=== PATIENT | female | born 1930 | race African-American/Black ===

== ENCOUNTER 2016-10-16 11:04 | Observation (INO) | payer OTHER ==
[2016-10-16] VITALS (7 sets, daily range): BP systolic 167–187; BP diastolic 70–82; PULSE 44–67; RESP 17–19; TEMP 97.7–98.9; O2SAT 96–100
[~2016-10-16] VITALS: Ht 167.6 cm; Wt 70.0 kg
[~2016-10-16 11:04] MED LIST: AMLO5 PO; HYDR-2768 PO; LISI-366 PO; OMEG306C PO
[2016-10-16] MEDS ORDERED: SODIUM CHLOR 0.9% 1000 ML INJ 1,000 ML IV SCH (11:35)
--- NOTE | 2016-10-16 11:39 | RADRPT ---
EXAM DATE/TIME: 10/16/2016 11:18 [facility] COMPARISON: CT BRAIN W/O CONTRAST, July 30, 2014, 11:16. INDICATIONS : Expressive aphasia and numbness; cephalgia. RADIATION DOSE: 56.35 CTDIvol (mGy) MEDICAL HISTORY : Hypertension. SURGICAL HISTORY : Hysterectomy. ENCOUNTER: Initial ACUITY: 1 day PAIN SCALE: 5/10 LOCATION: cranial TECHNIQUE: Multiple contiguous axial images were obtained of the head. Using automated exposure control and adj ustment of the mA and/or kV according to patient size, radiation dose was kept as low as reasonably a chievable to obtain optimal diagnostic quality images. DICOM format image data is available electro nically for review and comparison. FINDINGS: CEREBRUM: The ventricles are normal for age. No evidence of midline shift, mass lesion, hemorrhage or acute in farction. No extra-axial fluid collections are seen. POSTERIOR FOSSA: The cerebellum and brainstem are intact. The 4th ventricle is midline. The cerebellopontine angle i s unremarkable. EXTRACRANIAL: The visualized portion of the orbits is intact. SKULL: The calvaria is intact. No evidence of skull fracture. CONCLUSION: Normal examination. Olivia Riley MD on October 16, 2016 at 11:36 Board Certified Radiologist. This report was verified electronically.
--- NOTE | 2016-10-16 11:45 | PD ---
HPI Chief Complaint: Neuro Symptoms/ Deficits Time Seen by Provider: 11:17 Travel History International Travel<30 days: No Contact w/Intl Traveler<30days: No Traveled to known affect area: No History of Present Illness HPI 86-year-old female that presents to the ED for evaluation of possible TIA. Per patient and ambulance report she was having diarrhea earlier today. Per patient he fell she had an upset stomach. She felt weak and she went to sat down after going to the bathroom. At this time she developed trouble speaking and some numbness and tingling to her fingers and legs. Per patient this is when they called the ambulance. By the time ambulance showed up symptoms have subsided and patient was hard to normal. She denies any chest pain but states having a slight headache. She states that she still feels the tingling sensation on her fingers but nowhere else. She denies any chest pain. No palpitations. No fall or injury. Takes no blood thinners. History of borderline diabetic and hypertension. Denies having anything like this before. Patient does tell me that she had trouble speaking stating that she couldn't really find the words. Per ambulance she had expressive aphasia per family. Symptoms lasted about an hour and no symptoms have subsided. She has no history of CVA in the past. No history of neurological deficits in the past. She has no allergies to medication. She states that she just feels "sick". She can't really tell me if she has any pain. PFSH Past Medical History Hypertension: Yes ?: Not Past Surgical History Hysterectomy: Yes Social History Alcohol Use: No Tobacco Use: No Substance Use: No Allergies-Medications (Allergen,Severity, Reaction): Coded Allergies: No Known Allergies (Unverified , 10/16/16) Reported Meds & Prescriptions Reported Meds & Active Scripts Active Reported Hydrochlorothiazide 25 Mg Tab 25 Mg PO DAILY Simvastatin 40 Mg Tab 40 Mg PO HS Amlodipine (Amlodipine Besylate) 5 Mg Tab 5 Mg PO DAILY Review of Systems Except as stated in HPI: all other systems reviewed are Neg Physical Exam Narrative GENERAL: SKIN: Warm and dry. HEAD: Atraumatic. Normocephalic. EYES: Pupils equal and round 2 mm reactive to light and accommodation. No scleral icterus. No injection or drainage. ENT: No nasal bleeding or discharge. Mucous membranes pink and moist. Tongue is midline. No uvula deviation. No cranial nerve deficits noted. NECK: Trachea midline. No JVD. CARDIOVASCULAR: Regular rate and rhythm. No murmurs, S3, S4. RESPIRATORY: No accessory muscle use. Clear to auscultation. Breath sounds equal bilaterally. GASTROINTESTINAL: Abdomen soft, non-tender, nondistended. Hepatic and splenic margins not palpable. MUSCULOSKELETAL: Extremities without clubbing, cyanosis, or edema. No obvious deformities. Full range of motion of the upper and lower extremities bilaterally. Sensation intact bilaterally. Romberg test negative bilaterally. Pronator test negative bilaterally. 2+ pulses bilaterally. 5 out of 5 strength in the upper and lower extremities bilaterally. NEUROLOGICAL: Awake and alert and oriented 4. No obvious cranial nerve deficits. Motor grossly within normal limits. Five out of 5 muscle strength in the arms and legs. Normal speech. PSYCHIATRIC: Appropriate mood and affect; insight and judgment normal. Data Data Last Documented VS Vital Signs Date Time Temp Pulse Resp B/P (MAP) Pulse Ox O2 Delivery O2 Flow Rate FiO2 10/16/16 11:10 97.7 44 18 167/73 (104) 100 Orders Orders Electrocardiogram (10/16/16 11:15) Complete Blood Count With Diff (10/16/16 11:15) Basic Metabolic Panel (Bmp) (10/16/16 11:15) Ckmb (Isoenzyme) Profile (10/16/16 11:15) Troponin I (10/16/16 11:15) Prothrombin Time / Inr (Pt) (10/16/16 11:15) Act Partial Throm Time (Ptt) (10/16/16 11:15) Urinalysis - C+S If Indicated (10/16/16 11:15) Magnesium (Mg) (10/16/16 11:15) Thyroid Stimulating Hormone (10/16/16 11:15) Chest, Single Ap (10/16/16 11:15) Ct Brain W/O Iv Contrast(Rout) (10/16/16 11:15) Iv Access Insert/Monitor (10/16/16 11:15) Hepatic Functional Panel (10/16/16 11:35) Lipase (10/16/16 11:35) Sodium Chlor 0.9% 1000 Ml Inj (Ns 1000 M (10/16/16 11:35) CKMB (10/16/16 11:15) CKMB% (10/16/16 11:15) Admit Order (Ed Use Only) (10/16/16 13:10) Labs Laboratory Tests Test 10/16/16 11:15 10/16/16 11:45 White Blood Count 6.1 TH/MM3 Red Blood Count 4.09 MIL/MM3 Hemoglobin 11.4 GM/DL Hematocrit 34.9 % Mean Corpuscular Volume 85.4 FL Mean Corpuscular Hemoglobin 27.8 PG Mean Corpuscular Hemoglobin Concent 32.5 % Red Cell Distribution Width 13.3 % Platelet Count 322 TH/MM3 Mean Platelet Volume 6.9 FL Neutrophils (%) (Auto) 49.4 % Lymphocytes (%) (Auto) 43.9 % Monocytes (%) (Auto) 4.9 % Eosinophils (%) (Auto) 1.4 % Basophils (%) (Auto) 0.4 % Neutrophils # (Auto) 3.0 TH/MM3 Lymphocytes # (Auto) 2.7 TH/MM3 Monocytes # (Auto) 0.3 TH/MM3 Eosinophils # (Auto) 0.1 TH/MM3 Basophils # (Auto) 0.0 TH/MM3 CBC Comment DIFF FINAL Differential Comment Prothrombin Time 10.7 SEC Prothromb Time International Ratio 1.0 RATIO Activated Partial Thromboplast Time 27.3 SEC Blood Urea Nitrogen 7 MG/DL Creatinine 0.92 MG/DL Random Glucose 102 MG/DL Calcium Level 9.4 MG/DL Magnesium Level 1.8 MG/DL Sodium Level 142 MEQ/L Potassium Level 3.6 MEQ/L Chloride Level 108 MEQ/L Carbon Dioxide Level 24.3 MEQ/L Anion Gap 10 MEQ/L Estimat Glomerular Filtration Rate 70 ML/MIN Total Bilirubin 0.3 MG/DL Direct Bilirubin 0.1 MG/DL Indirect Bilirubin 0.2 MG/DL Aspartate Amino Transf (AST/SGOT) 14 U/L Alanine Aminotransferase (ALT/SGPT) 18 U/L Alkaline Phosphatase 68 U/L Total Creatine Kinase 110 U/L Creatine Kinase MB 1.4 NG/ML Troponin I LESS THAN 0.02 NG/ML Total Protein 7.2 GM/DL Albumin 3.4 GM/DL Lipase 105 U/L Thyroid Stimulating Hormone 3rd Gen 1.500 uIU/ML Urine Color LIGHT-YELLOW Urine Turbidity CLEAR Urine pH 8.0 Urine Specific [place] 1.007 Urine Protein NEG mg/dL Urine Glucose (UA) NEG mg/dL Urine Ketones NEG mg/dL Urine Occult Blood NEG Urine Nitrite NEG Urine Bilirubin NEG Urine Urobilinogen LESS THAN 2.0 MG/DL Urine Leukocyte Esterase NEG Urine RBC 1 /hpf Urine Squamous Epithelial Cells <1 /hpf Urine Mucus FEW /lpf Microscopic Urinalysis Comment CULT NOT INDICATED MDM Medical Decision Making Medical Screen Exam Complete: Yes Emergency Medical Condition: Yes Medical Record Reviewed: Yes Interpretation(s) Last Impressions Head CT 10/16/16 1115 Signed Impressions: Service Date/Time: Sunday, October 16, 2016 11:18 - CONCLUSION: Normal examination. Olivia Riley MD Chest X-Ray 10/16/16 1115 Signed Impressions: Service Date/Time: Sunday, October 16, 2016 11:50 - CONCLUSION: No acute disease. No significant change has occurred. Zenon Dougherty MD CBC & BMP Diagram 10/16/16 11:15 Calcium Level 9.4, Magnesium Level 1.8 troponin and CKMB negative LFTS WNL Lipase WNL EKG shows sinus bradycardia but no sign of ischemia read by me and attending. UA negative Differential Diagnosis TIA versus CVA versus dehydration versus diarrhea versus generalized weakness versus ACS Narrative Course 86-year-old female that presents to the ED for evaluation of possible TIA. Patient was properly examined and was found to have signs and symptoms of unclear etiology. Labs and imaging were ordered. Labs and imaging were essentially unremarkable other than for bradycardia on EKG. At this time case was discussed with my attending Dr. Judd who evaluated the patient and recommends admission for TIA workup. All her symptoms seem to have resolved except she still has something to her fingers. Case was discussed with Dr. Phillips who is in agreement with admission for FOR TIA workup. Family and patient agree with plan. Diagnosis Primary Impression: TIA (transient ischemic attack) Qualified Codes: G45.9 - Transient cerebral ischemic attack, unspecified Additional Impressions: Expressive aphasia Bradycardia Hypertension Qualified Codes: I10 - Essential (primary) hypertension Admitting Information Admitting Physician Requests: Observation Roni Donovan Oct 16, 2016 11:45
[2016-10-16] MEDS ORDERED: SIMV40TA PO (11:53)
[2016-10-16] MEDS ORDERED: HYDR25TA5 PO (11:53)
[2016-10-16] MEDS ORDERED: AMLO5TAB2 PO (11:53)
[2016-10-16 12:01] LABS: BASOPHIL % 0.4 % (0.0-2.0); EOSINOPHIL # 0.1 TH/MM3 (0-0.4); EOSINOPHIL % 1.4 % (0.0-4.0); HEMATOCRIT 34.9 % (35.0-46.0); HEMO FLAGS DIFF FINAL; LYMPH % 43.9 % (9.0-44.0); LYMPHOCYTE # 2.7 TH/MM3 (1.0-4.8); MEAN CELL VOLUME 85.4 FL (80.0-100.0); MEAN CORPUSCULAR HEMOGLOBIN 27.8 PG (27.0-34.0); MEAN CORPUSCULAR HGB CONC 32.5 % (32.0-36.0); MONO % 4.9 % (0.0-8.0); NEUT % 49.4 % (16.0-70.0); PLATELET COUNT 322 TH/MM3 (150-450); RED BLOOD COUNT 4.09 MIL/MM3 (4.00-5.30); RED CELL DISTRIBUTION WIDTH 13.3 % (11.6-17.2); WHITE BLOOD COUNT 6.1 TH/MM3 (4.0-11.0)
[2016-10-16 12:02] LABS: BLOOD, URINE NEG (NEG); COMMENT (UR) CULT NOT INDICATED; CULTURE IF INDICATED CULT NOT INDICATED; GLUCOSE,URINE NEG (NEG); KETONE, URINE NEG (NEG); MUCUS URINE FEW /lpf (OCC); NITRITE,URINE NEG (NEG); SQUAMOUS EPITHELIAL CELL URINE <1 /hpf (0-5); URINE COLOR LIGHT-YELLOW (YELLW/STRAW)
--- NOTE | 2016-10-16 12:05 | RADRPT ---
EXAM DATE/TIME: 10/16/2016 11:50 [facility] COMPARISON: CHEST SINGLE AP, July 30, 2014, 10:41. INDICATIONS : Syncope MEDICAL HISTORY : Hypertension. SURGICAL HISTORY : Hysterectomy. ENCOUNTER: Initial ACUITY: 2 days PAIN SCORE: 0/10 LOCATION: chest FINDINGS: A single view of the chest demonstrates the lungs to be symmetrically aerated without evidence of mas s, infiltrate or effusion. The cardiomediastinal contours are unremarkable. Osseous structures are intact. CONCLUSION: No acute disease. No significant change has occurred. Zenon Dougherty MD on October 16, 2016 at 12:03 Board Certified Radiologist. This report was verified electronically.
[2016-10-16 12:09] LABS: APTT (PATIENT) 27.3 SEC (24.3-30.1); PROTHROMBIN TIME - PATIENT 10.7 SEC (9.8-11.6)
[2016-10-16 12:21] LABS: ANION GAP 10 MEQ/L (5-15); BICARBONATE 24.3 MEQ/L (21.0-32.0); CHLORIDE 108 MEQ/L (98-107); GLOMERULAR FILTRATION RATE 70 ML/MIN (>89); MAGNESIUM 1.8 MG/DL (1.5-2.5); POTASSIUM 3.6 MEQ/L (3.5-5.1); SODIUM (NA) 142 MEQ/L (136-145)
[2016-10-16 12:30] LABS: INDIRECT BILIRUBIN 0.2 MG/DL (0.0-0.8); TOTAL BILIRUBIN ADULT 0.3 MG/DL (0.2-1.0)
[2016-10-16 12:32] LABS: BLOOD UREA NITROGEN 7 MG/DL (7-18); CREATINE KINASE 110 U/L (26-192)
[2016-10-16 12:44] LABS: CKMB 1.4 NG/ML (0.5-3.6)
--- NOTE | 2016-10-16 12:51 | PD ---
Data Data Last Documented VS Vital Signs Date Time Temp Pulse Resp B/P (MAP) Pulse Ox O2 Delivery O2 Flow Rate FiO2 10/16/16 11:10 97.7 44 18 167/73 (104) 100 Orders Orders Electrocardiogram (10/16/16 11:15) Complete Blood Count With Diff (10/16/16 11:15) Basic Metabolic Panel (Bmp) (10/16/16 11:15) Ckmb (Isoenzyme) Profile (10/16/16 11:15) Troponin I (10/16/16 11:15) Prothrombin Time / Inr (Pt) (10/16/16 11:15) Act Partial Throm Time (Ptt) (10/16/16 11:15) Urinalysis - C+S If Indicated (10/16/16 11:15) Magnesium (Mg) (10/16/16 11:15) Thyroid Stimulating Hormone (10/16/16 11:15) Chest, Single Ap (10/16/16 11:15) Ct Brain W/O Iv Contrast(Rout) (10/16/16 11:15) Iv Access Insert/Monitor (10/16/16 11:15) Hepatic Functional Panel (10/16/16 11:35) Lipase (10/16/16 11:35) Sodium Chlor 0.9% 1000 Ml Inj (Ns 1000 M (10/16/16 11:35) CKMB (10/16/16 11:15) CKMB% (10/16/16 11:15) Labs Laboratory Tests Test 10/16/16 11:15 10/16/16 11:45 White Blood Count 6.1 TH/MM3 Red Blood Count 4.09 MIL/MM3 Hemoglobin 11.4 GM/DL Hematocrit 34.9 % Mean Corpuscular Volume 85.4 FL Mean Corpuscular Hemoglobin 27.8 PG Mean Corpuscular Hemoglobin Concent 32.5 % Red Cell Distribution Width 13.3 % Platelet Count 322 TH/MM3 Mean Platelet Volume 6.9 FL Neutrophils (%) (Auto) 49.4 % Lymphocytes (%) (Auto) 43.9 % Monocytes (%) (Auto) 4.9 % Eosinophils (%) (Auto) 1.4 % Basophils (%) (Auto) 0.4 % Neutrophils # (Auto) 3.0 TH/MM3 Lymphocytes # (Auto) 2.7 TH/MM3 Monocytes # (Auto) 0.3 TH/MM3 Eosinophils # (Auto) 0.1 TH/MM3 Basophils # (Auto) 0.0 TH/MM3 CBC Comment DIFF FINAL Differential Comment Prothrombin Time 10.7 SEC Prothromb Time International Ratio 1.0 RATIO Activated Partial Thromboplast Time 27.3 SEC Blood Urea Nitrogen 7 MG/DL Creatinine 0.92 MG/DL Random Glucose 102 MG/DL Calcium Level 9.4 MG/DL Magnesium Level 1.8 MG/DL Sodium Level 142 MEQ/L Potassium Level 3.6 MEQ/L Chloride Level 108 MEQ/L Carbon Dioxide Level 24.3 MEQ/L Anion Gap 10 MEQ/L Estimat Glomerular Filtration Rate 70 ML/MIN Total Bilirubin 0.3 MG/DL Direct Bilirubin 0.1 MG/DL Indirect Bilirubin 0.2 MG/DL Aspartate Amino Transf (AST/SGOT) 14 U/L Alanine Aminotransferase (ALT/SGPT) 18 U/L Alkaline Phosphatase 68 U/L Total Creatine Kinase 110 U/L Troponin I LESS THAN 0.02 NG/ML Total Protein 7.2 GM/DL Albumin 3.4 GM/DL Lipase 105 U/L Thyroid Stimulating Hormone 3rd Gen 1.500 uIU/ML Urine Color LIGHT-YELLOW Urine Turbidity CLEAR Urine pH 8.0 Urine Specific [place] 1.007 Urine Protein NEG mg/dL Urine Glucose (UA) NEG mg/dL Urine Ketones NEG mg/dL Urine Occult Blood NEG Urine Nitrite NEG Urine Bilirubin NEG Urine Urobilinogen LESS THAN 2.0 MG/DL Urine Leukocyte Esterase NEG Urine RBC 1 /hpf Urine Squamous Epithelial Cells <1 /hpf Urine Mucus FEW /lpf Microscopic Urinalysis Comment CULT NOT INDICATED MDM Supervised Visit with HAYDE: Yes Narrative Course The history, exam, and medical decision-making in the associated midlevel provider note were completed with my assistance. I reviewed and agree with the findings presented. I attest that I had a [id number] encounter with the patient on the same day, and personally performed and documented my assessment and findings in the medical record. *My assessment and Findings: This is an 86 year old female who presents to ED having had an episode several minutes with her family earlier that she had difficulty answering questions and getting her words out. She also says she had numbness and tingling in her left lower extremity and both hands. Her symptoms have completely resolved in the ED and she has a normal neurologic exam. Labs and CT are reassuring. Pt. is high risk. She will be admitted for TIA evaluation. Maureen Judd MD Oct 16, 2016 12:51
[2016-10-16] MEDS ORDERED: SODIUM CHLORIDE 0.9% FLUSH 10 ML FLUSH IV FLUSH PRN (13:15)
--- NOTE | 2016-10-16 15:38 | RADRPT ---
EXAM DATE/TIME: 10/16/2016 14:14 [facility] COMPARISON: No previous studies available for comparison. INDICATIONS : Transischemic attack. MEDICAL HISTORY : Hypertension. SURGICAL HISTORY : Hysterectomy. ENCOUNTER: Initial ACUITY: 1 day PAIN SCORE: 0/10 LOCATION: Bilateral neck PEAK SYSTOLIC VELOCITIES (cm/sec): ICA/CCA RATIO: Right: 1.2 Left: 1.0 ICA: Right: 118 Left: 112 CCA: Right: 97 Left: 116 ECA: Right: 154 Left: 119 VERTEBRAL: Right: 69 antegrade Left: 20 antegrade Elevated flow velocities and ICA/CCA ratios have been found to correlate with increased degrees of vessel stenosis, calculated as percentage of diameter relative to a normal segment of distal ICA/CCA FINDINGS: RIGHT CAROTID: Vessels are tortuous, especially proximal common carotid artery. There is moderate plaque in the bulb and proximal internal carotid artery. 50% or less narrowing by cross-section. LEFT CAROTID: Tortuous, especially proximal common carotid artery. Moderate plaque of the bulb and proximal interna l carotid artery. By cross-section, suggestion for a greater than 70% narrowing but not confirmed by Doppler. VERTEBRAL ARTERIES: Antegrade flow is seen in both vertebral arteries. MISCELLANEOUS: None. CONCLUSION: Bilateral carotid tortuosity and moderate plaque of the bifurcations. No Doppler evidence of hemodyna mically significant narrowing. Dar Lomeli MD on October 16, 2016 at 15:34 Board Certified Radiologist. This report was verified electronically.
--- NOTE | 2016-10-16 16:06 | RADRPT ---
EXAM DATE/TIME: 10/16/2016 14:52 [facility] COMPARISON: CT BRAIN W/O CONTRAST, October 16, 2016, 11:18. INDICATIONS : Bilat lower extremity numbness MEDICAL HISTORY : Hypertension. Hypercholesterolemia. SURGICAL HISTORY : Hysterectomy. ENCOUNTER: Initial ACUITY: 1 day PAIN SCORE: 0/10 LOCATION: cranial TECHNIQUE: Multiplanar, multisequence MRI of the brain was performed without contrast. FINDINGS: CEREBRUM: The ventricles are normal for age. No evidence of midline shift, mass lesion, hemorrhage or acute in farction. No extraaxial fluid collections are seen. The pituitary gland and suprasellar cistern are normal in configuration. WHITE MATTER: No significant signal abnormalities are seen in the white matter. POSTERIOR FOSSA: The cerebellum and brainstem are intact. The 4th ventricle is midline. The cerebellopontine angle is unremarkable. The cerebellar tonsils are normal in position. DIFFUSION IMAGING: No focal areas of restricted diffusion are seen. No evidence of acute infarction. EXTRACRANIAL: The visualized portions of the orbits and paranasal sinuses are unremarkable. CONCLUSION: Normal noncontrast brain MRI. Dar Lomeli MD on October 16, 2016 at 16:04 Board Certified Radiologist. This report was verified electronically.
[2016-10-16] MEDS ORDERED: LISI40TA PO (16:08)
--- NOTE | 2016-10-16 16:38 | HHI.HP ---
[facility] Service [facility] Primary Care Physician Zenon Calderon MD Admission Diagnosis TIA, resolved expressive aphasia Diagnoses: Chief Complaint: Dizziness Travel History International Travel<30 Days: No Contact w/Intl Traveler <30 Da: No Traveled to Known Affected Are: No History of Present Illness Patient is a very pleasant 86 year-old female left-handed, with known history of hypertension still very feisty and independent with her ADLs who woke up this morning feeling weak, " sick, and like my whole body sick". On further questioning patient states has been feeling like this for one week now and described it as "feels foggy". She did states that she had diarrhea for the past 3 days watery stools nonbloody. Denies any fever or chills. She denies passing out or having any syncopal episodes. Persistence prompted her to call her son who lives with her and was brought in by [facility]. On initial exam was noted by ER to have some mild expressive aphasia. Currently on exam patient is very spontaneous in speech. Denies any weakness. Patient admitted for further evaluation. Review of Systems Constitutional: DENIES: Fever, Weight loss, Chills, Change in appetite Eyes: DENIES: Blurred vision, Double Vision Ears, nose, mouth, throat: DENIES: Tinnitus, Ear Pain, Epistaxis, Odynophagia Respiratory: DENIES: Cough, Hemoptysis, Sputum production, Shortness of breath Cardiovascular: DENIES: Chest pain, Palpitations, Dyspnea on Exertion, Lower Extremity Edema, Orthopnea Gastrointestinal: DENIES: Black stools, Bloody stools, Difficulty Swallowing, Anorexia Genitourinary: DENIES: Urgency, Hematuria, Vaginal discharge Musculoskeletal: DENIES: Joint pain, Stiffness Integumentary: DENIES: Pruritus Hematologic/lymphatic: DENIES: Bruising Immunologic/allergic: DENIES: Urticaria Neurologic: DENIES: Headache, Speech Problems, Tremor Psychiatric: DENIES: Suicidal Ideation, Homicidal Ideation Past Family Social History Past Medical History Hypertension hyperlipidemia Past Surgical History Hysterectomy secondary to fibroid tumor in 1971 Reported Medications Hydrochlorothiazide 25 mg daily Simvastatin 40 mg at bedtime Amlodipine 5 mg daily Lisinopril 40 mg daily Allergies: Coded Allergies: No Known Allergies (Unverified , 10/16/16) Family History Noncontributory Social History Nonsmoker drink occasional beer -none for 40 years No recreational drug use Physical Exam Vital Signs Vital Signs Date Time Temp Pulse Resp B/P (MAP) Pulse Ox O2 Delivery O2 Flow Rate FiO2 10/16/16 15:49 67 19 187/81 (116) 97 Room Air 10/16/16 13:25 97 21 10/16/16 11:10 97.7 44 18 167/73 (104) 100 Physical Exam GENERAL: This is a well-nourished, well-developed patient, in no apparent distress. SKIN: No rashes, ecchymoses or lesions. Cool and dry. HEAD: Atraumatic. Normocephalic. No temporal or scalp tenderness. EYES: Pupils equal round and reactive. Extraocular motions intact. No scleral icterus. No injection or drainage. ENT: Nose without bleeding, purulent drainage or septal hematoma. Throat without erythema, tonsillar hypertrophy or exudate. Uvula midline. Airway patent. NECK: Trachea midline. No JVD or lymphadenopathy. Supple, nontender, no meningeal signs. No bruit CARDIOVASCULAR: Regular rate and rhythm without murmurs, gallops, or rubs. RESPIRATORY: Clear to auscultation. Breath sounds equal bilaterally. No wheezes , rales, or rhonchi. GASTROINTESTINAL: Abdomen soft, non-tender, nondistended.No guarding. MUSCULOSKELETAL: Extremities without clubbing, cyanosis, or edema. No joint tenderness, effusion, or edema noted. No calf tenderness. Negative Homans sign bilaterally. NEUROLOGICAL: Awake and alert. Oriented 3 Speech clear and spontaneous Cranial nerves II through XII intact. Motor and sensory grossly within normal limits. Five out of 5 muscle strength in all muscle groups. Normal speech. Laboratory Laboratory Tests Test 10/16/16 11:15 10/16/16 11:45 White Blood Count 6.1 Red Blood Count 4.09 Hemoglobin 11.4 Hematocrit 34.9 Mean Corpuscular Volume 85.4 Mean Corpuscular Hemoglobin 27.8 Mean Corpuscular Hemoglobin Concent 32.5 Red Cell Distribution Width 13.3 Platelet Count 322 Mean Platelet Volume 6.9 Neutrophils (%) (Auto) 49.4 Lymphocytes (%) (Auto) 43.9 Monocytes (%) (Auto) 4.9 Eosinophils (%) (Auto) 1.4 Basophils (%) (Auto) 0.4 Neutrophils # (Auto) 3.0 Lymphocytes # (Auto) 2.7 Monocytes # (Auto) 0.3 Eosinophils # (Auto) 0.1 Basophils # (Auto) 0.0 CBC Comment DIFF FINAL Differential Comment Prothrombin Time 10.7 Prothromb Time International Ratio 1.0 Activated Partial Thromboplast Time 27.3 Blood Urea Nitrogen 7 Creatinine 0.92 Random Glucose 102 Calcium Level 9.4 Magnesium Level 1.8 Sodium Level 142 Potassium Level 3.6 Chloride Level 108 Carbon Dioxide Level 24.3 Anion Gap 10 Estimat Glomerular Filtration Rate 70 Total Bilirubin 0.3 Direct Bilirubin 0.1 Indirect Bilirubin 0.2 Aspartate Amino Transf (AST/SGOT) 14 Alanine Aminotransferase (ALT/SGPT) 18 Alkaline Phosphatase 68 Total Creatine Kinase 110 Creatine Kinase MB 1.4 Troponin I LESS THAN 0.02 Total Protein 7.2 Albumin 3.4 Lipase 105 Thyroid Stimulating Hormone 3rd Gen 1.500 Urine Color LIGHT-YELLOW Urine Turbidity CLEAR Urine pH 8.0 Urine Specific [place] 1.007 Urine Protein NEG Urine Glucose (UA) NEG Urine Ketones NEG Urine Occult Blood NEG Urine Nitrite NEG Urine Bilirubin NEG Urine Urobilinogen LESS THAN 2.0 Urine Leukocyte Esterase NEG Urine RBC 1 Urine Squamous Epithelial Cells <1 Urine Mucus FEW Microscopic Urinalysis Comment CULT NOT INDICATED Result Diagram: 10/16/16 1115 10/16/16 111 Imaging Last Impressions Head CT 10/16/16 1115 Signed Impressions: Service Date/Time: Sunday, October 16, 2016 11:18 - CONCLUSION: Normal examination. Olivia Riley MD Chest X-Ray 10/16/16 1115 Signed Impressions: Service Date/Time: Sunday, October 16, 2016 11:50 - CONCLUSION: No acute disease. No significant change has occurred. Zenon Dougherty MD Carotid Artery Ultrasound 10/16/16 0000 Signed Impressions: Service Date/Time: Sunday, October 16, 2016 14:14 - CONCLUSION: Bilateral carotid tortuosity and moderate plaque of the bifurcations. No Doppler evidence of hemodynamically significant narrowing. Dar Lomeli MD Brain MRI 10/16/16 0000 Signed Impressions: Service Date/Time: Sunday, October 16, 2016 14:52 - CONCLUSION: Normal noncontrast brain MRI. MD Mojgan Flores VTE Risk Assessment Caprini VTE Risk Assessment: Mod/High Risk (score >= 2) Caprini Risk Assessment Model Point Value = 1 Point Value = 2 Point Value = 3 Point Value = 5 Age 41-60 Minor surgery BMI > 25 kg/m2 Swollen legs Varicose veins or History of unexplained or recurrent spontaneous Oral contraceptives or hormone replacement Sepsis (< 1 month) Serious lung disease, including pneumonia (< 1 month) Abnormal pulmonary function Acute myocardial infarction Congestive heart failure (< 1 month) History of inflammatory bowel disease Medical patient at bed rest Age 61-74 Arthroscopic surgery Major open surgery (> 45 min) Laparoscopic surgery (> 45 min) Malignancy Confined to bed (> 72 hours) Immobilizing plaster cast Central venous access Age >= 75 History of VTE Family history of VTE Factor V Leiden Prothrombin [id number] Lupus anticoagulant Anticardiolipin antibodies Elevated serum homocysteine Heparin-induced thrombocytopenia Other congenital or acquired thrombophilia Stroke (< 1 month) Elective arthroplasty Hip, pelvis, or leg fracture Acute spinal cord injury (< 1 month) Prophylaxis Regimen Total Risk Factor Score Risk Level Prophylaxis Regimen 0-1 Low Early ambulation 2 Moderate Order ONE of the following: *Sequential Compression Device (SCD) *Heparin 5000 units SQ BID 3-4 Higher Order ONE of the following medications: *Heparin 5000 units SQ TID *Enoxaparin/Lovenox 40 mg SQ daily (WT < 150 kg, CrCl > 30 mL/min) *Enoxaparin/Lovenox 30 mg SQ daily (WT < 150 kg, CrCl > 10-29 mL/min) *Enoxaparin/Lovenox 30 mg SQ BID (WT < 150 kg, CrCl > 30 mL/min) AND/OR *Sequential Compression Device (SCD) 5 or more Highest Order ONE of the following medications: *Heparin 5000 units SQ TID (Preferred with Epidurals) *Enoxaparin/Lovenox 40 mg SQ daily (WT < 150 kg, CrCl > 30 mL/min) *Enoxaparin/Lovenox 30 mg SQ daily (WT < 150 kg, CrCl > 10-29 mL/min) *Enoxaparin/Lovenox 30 mg SQ BID (WT < 150 kg, CrCl > 30 mL/min) AND *Sequential Compression Device (SCD) Assessment and Plan Assessment and Plan 86 year-old female left-handed very independent with ADLs who presented with Generalized weakness feeling of fogginess reported expressive aphasia- transient TIA. Symptoms all resolved on evaluation. ASA daily. Workup with 2-D echo carotid ultrasound, Brain MRI. Place on telemetry. PT eval and treat in a.m. Speech therapy eval in am. Neuro check q shift Bradycardia. HR 40s. Place on telemetry. check TSH. order for holter monitoring not on any BB. Kcl 20 meq po x 1. BMP in am Diarrhea which also can explain symptoms. Gentle IV fluid. History of hypertension. Continue on amlodipine 5 mg by mouth daily for now. Hold hydrochlorothiazide and lisinopril 40 mg daily. for now IV Vasotec when necessary for blood pressure 170 and above History of hyperlipidemia continue on simvastatin 40 mg at bedtime DVT prophylaxis Lovenox 40 mg subcutaneous If stable and work up negative possible discharge in a.m. Code Status full code Discussed Condition With Patient and her grand daughter Belkys Phillips MD Oct 16, 2016 16:37
[2016-10-16] MEDS ORDERED: POTASSIUM CHLORIDE 20 MEQ CONTROLLED RELEASE TAB PO ONE (17:15)
[2016-10-16] MEDS: ASPIRIN 325 MG TAB PO SCH (18:29)
[2016-10-16] MEDS: SODIUM CHLOR 0.9% 1000 ML INJ 1,000 ML IV SCH (18:30)
[2016-10-16] MEDS: SODIUM CHLORIDE 0.9% FLUSH 10 ML FLUSH IV FLUSH SCH (21:00)
[2016-10-17] VITALS (9 sets, daily range): BP systolic 124–183; BP diastolic 58–76; PULSE 41–54; RESP 18–21; TEMP 97.9–99.5; O2SAT 98–99
[2016-10-17 05:57] LABS: BICARBONATE 25.5 MEQ/L (21.0-32.0); POTASSIUM 3.5 MEQ/L (3.5-5.1)
[2016-10-17] MEDS: SODIUM CHLOR 0.9% 1000 ML INJ 1,000 ML IV SCH (06:18)
[2016-10-17] MEDS: ASPIRIN 325 MG TAB PO SCH (08:27)
[2016-10-17] MEDS: SODIUM CHLORIDE 0.9% FLUSH 10 ML FLUSH IV FLUSH SCH (08:27)
[2016-10-17] MEDS ORDERED: ASPIRIN 325 MG TAB PO SCH (09:00)
--- NOTE | 2016-10-17 16:14 | EKG ---
Date Performed: 10/16/2016 Time Performed: 11:36:02 PTAGE: 86 years EKG: SINUS BRADYCARDIA WITH FIRST DEGREE AV BLOCK WITH OCCASIONAL SUPRAVENTRICULAR PREMATURE COM PLEXES When compared to previous tracing, sinus rate is slower. ABNORMAL ECG PREVIOUS TRACING : 07/30/2014 10.20 DOCTOR: Prieto Rodriguez Interpretating Date/Time 10/17/2016 16:14:13
[2016-10-17] MEDS ORDERED: ENOXAPARIN SODIUM 150 MG/ML SYRINGE SQ SCH (16:15)
[2016-10-17] MEDS ORDERED: ASPI81CH CHEW (16:33)
--- NOTE | 2016-10-17 16:36 | HHI.DS ---
Discharge Summary Admission Date Oct 16, 2016 at 13:11 Discharge Date: Oct 17, 2016 Admitting Diagnosis TIA, resolved expressive aphasia (1) TIA (transient ischemic attack) ICD Code: G45.9 - Transient cerebral ischemic attack, unspecified Status: Acute Procedures None Brief History - From Admission Patient is a very pleasant 86 year-old female left-handed, with known history of hypertension still very feisty and independent with her ADLs who woke up this morning feeling weak, " sick, and like my whole body sick". On further questioning patient states has been feeling like this for one week now and described it as "feels foggy". She did states that she had diarrhea for the past 3 days watery stools nonbloody. Denies any fever or chills. She denies passing out or having any syncopal episodes. Persistence prompted her to call her son who lives with her and was brought in by [facility]. On initial exam was noted by ER to have some mild expressive aphasia. Currently on exam patient is very spontaneous in speech. Denies any weakness. Patient admitted for further evaluation. CBC/BMP: 10/16/16 1115 10/17/16 0510 Significant Findings Laboratory Tests Test 10/16/16 11:15 10/16/16 11:45 10/17/16 05:10 Hemoglobin 11.4 GM/DL (11.6-15.3) Hematocrit 34.9 % (35.0-46.0) Mean Platelet Volume 6.9 FL (7.0-11.0) Chloride Level 108 MEQ/L (98-107) 110 MEQ/L (98-107) Estimat Glomerular Filtration Rate 70 ML/MIN (>89) Aspartate Amino Transf (AST/SGOT) 14 U/L (15-37) Troponin I LESS THAN 0.02 NG/ML Urine Mucus FEW /lpf (OCC) Blood Urea Nitrogen 6 MG/DL (7-18) Hospital Course Ms. Caban is an 86-year-old female. She was admitted secondary to TIA symptoms and had full resolution of the symptoms before H&P was performed. She has felt within normal limits all day. Carotid ultrasound, MRI, and thyroid evaluations are all within normal limits. Echocardiogram has been ordered and completed, report is pending. Patient has no complaints. Starting a daily aspirin for clot prevention is discussed with the patient. Medically stable for discharge to home. Echocardiogram will be followed up and reported to the patient as it will unlikely have a report till tomorrow. Pt Condition on Discharge: Stable Discharge Disposition: Discharge Home Discharge Time: <= 30 minutes Discharge Instructions DIET: Follow Instructions for: As Tolerated, No Restrictions Speech Therapy-Diet Recommends: Regular Activities you can perform: Regular-No Restrictions New Medications: Aspirin (Aspirin) 81 Mg Chew 81 MG CHEW DAILY for Blood Clot Prevention, #30 TAB 0 Refills Continued Medications: Amlodipine (Amlodipine) 5 Mg Tab 5 MG PO DAILY for Blood Pressure Management, #30 TAB 0 Refills Hydrochlorothiazide (Hydrochlorothiazide) 25 Mg Tab 25 MG PO DAILY, #30 TAB 0 Refills Lisinopril (Lisinopril) 40 Mg Tab 40 MG PO DAILY for Blood Pressure Management, #30 TAB 0 Refills Simvastatin (Simvastatin) 40 Mg Tab 40 MG PO HS for Cholesterol Management, #30 TAB 0 Refills Richard Cr MD Oct 17, 2016 16:35
--- NOTE | 2016-10-17 20:37 | ECHRPT ---
Indication: Transient cerebral ischemic attack, unspecified CONCLUSIONS The left ventricular systolic function is normal with an estimated ejection fraction in the range of 60-65%. Normal left ventricular size. Wall thickness is normal. Wall thickness is normal. The left atrial size is upper limits of normal. Mild aortic sclerosis. Mitral valve sclerosis. Mild mitral valve regurgitation. There is mild tricuspid valve regurgitation. The estimated pulmonary arterial pressure is _32_ mmHg. BP: / HR: Rhythm: MEASUREMENTS (Male / Female) Normal Values Technical Quality:Good 2D ECHO LV Diastolic Diameter PLAX 3.6 cm 4.2 - 5.9 / 3.9 - 5.3 cm LV Systolic Diameter PLAX 2.5 cm IVS Diastolic Thickness 2.1 cm 0.6 - 1.0 / 0.6 - 0.9 cm LVPW Diastolic Thickness 0.8 cm 0.6 - 1.0 / 0.6 - 0.9 cm LV Relative Wall Thickness 0.8 RV Internal Dim ED PLAX 3.8 cm M-MODE Aortic Root Diameter MM 2.8 cm LA Systolic Diameter MM 4.1 cm LA Ao Ratio MM 1.5 AV Cusp Separation MM 1.6 cm DOPPLER Mitral E Point Velocity 84.4 cm/s Mitral A Point Velocity 72.1 cm/s Mitral E to A Ratio 1.2 LV E' Lateral Velocity 5.3 cm/s Mitral E to LV E' Lateral Ratio 16.0 LV E' Septal Velocity 7.9 cm/s Mitral E to LV E' Septal Ratio 10.7 TR Peak Velocity 233.0 cm/s TR Peak Gradient 21.7 mmHg FINDINGS RIGHT VENTRICLE Normal right ventricular size and systolic function. LEFT ATRIUM The left atrial size is upper limits of normal. RIGHT ATRIUM The right atrial size is normal. ATRIAL SEPTUM Normal atrial septal thickness without atrial level shunting by limited color doppler interrogation. AORTA The aortic root and proximal ascending aorta are normal in size on limited imaging. MITRAL VALVE Structurally normal mitral valve. Mild mitral valve regurgitation. No mitral valve stenosis. AORTIC VALVE Trileaflet aortic valve. No aortic valve stenosis or regurgitation. TRICUSPID VALVE Structurally normal tricuspid valve. There is mild tricuspid valve regurgitation. The estimated pulmonary arterial pressure is _32_ mmHg. PULMONARY VALVE The pulmonary valve is not well visualized. VESSELS The inferior vena cava is normal in size. PERICARDIUM No pericardial effusion. Shoshana Butt MD, FACC (Electronically Signed) Final Date:17 October 2016 20:36
--- NOTE | 2016-10-18 15:54 | HM ---
Date Performed: 10/16/2016 Time Performed: 19:09:00 HOOKUP DATE: 10/16/16 07:09:00 PM Sun ANALYSIS START TIME: 10/16/2016 7:14:00 PM ANALYSIS END TIME: 10/17/2016 5:34:20 PM PATIENT AGE: 86 PATIENT HEIGHT: 66 PATIENT WEIGHT: 154 DRUG LIST: Room # - PATIENT DIAGNOSIS: TIA RESOLVED EXPRESSIVE APHASIA TEST NARRATIVE: The patient's average heart rate was 50 BPM. No episodes of tachycardia wer e noted. Heart rates less than 50 BPM were noted 76% of the time. 13 pauses exceeding 2.0 secon ds were noted. The longest pause of 2.1 seconds occurred at 03:55:16 AM Mon. 321 ventricular ecto pics, which represented < 1% of the total beat count, were noted. The highest ventricular ectopic fr equency occurred from 09:00 AM to 10:00 AM Mon. During this time 74 VE(s) occurred. Ventricular ect opics were observed as 313 isolated beat(s), as 2 couplet(s) and as 1 run(s). 5491 supraventricul ar ectopics, which represented 8% of the total beat count, were noted. The highest supraventricular ectopic frequency occurred from 10:00 PM to 11:00 PM Sun. During this time 414 SVE(s) occurred. No episodes of ST depression (defined as -1.0 mm or more) were noted in channel 1. No episodes of ST depression (defined as -1.0 mm or more) were noted in channel 2. No episodes of ST depression (defi hermes as -1.0 mm or more) were noted in channel 3. no diary returned TEST INTERPRETATION: Patient undergoes a holter monitor to see if there is any relationship of h er neurologic symptoms with a rhythm disturbance. No diary is provided. Only the expanded tracings ar e subject to interpretation. In general, the patient has only occassional PACs and PVCs. There is one brief episode of an accelerated idioventricular rhythm, but no ventricular tachycardia or complex ec topy is noted. There is some irregularity of the supraventricular rate, but no supraventricular tachy cardias are noted, and specfically, I do not see any convincing atrial fibrillation or atrial flutter . There is some variability of the CO interval. Patient is bradycardic at night with a minimum heart rate of 33 beats per minute, but as we have no diary, it is unknown if she is symptomatic. In conclus ion, 1) Sinus rhythm with occassional PACs and PVCs, 2) no significant tachyarrhythmias, 3) sinus bradycardia, primarily while sleeping, with a minimum rate of 33 beats per minute, 4) one episode of an accelerated idiovent ricular rhythm, but no complex ventricular ectopy, 5) no diary is provided, so it is unknown if the p atient is symptomatic. Signed by : Elisha Schaffer
== END 2016-10-17 18:36 | disposition home or self-care (01) ==
LOC: NEPC 11:04 → NEDA 13:11 → NEPFCDU 16:21
PROVIDERS: ADMIT Hospitalist; ATTEND Hospitalist
DX: G45.9 Transient cerebral ischemic attack, unspecified (principal); R94.31 Abnormal electrocardiogram [ECG] [EKG]; R42 Dizziness and giddiness; R00.1 Bradycardia, unspecified; R47.01 Aphasia; I10 Essential (primary) hypertension
CPT/HCPCS: 70450; 70551; 71010; 80048; 80076; 81001; 82550; 82552; 82948; 83690; 83735; 84443; 84484; 85025; 85610; 85730; 92610; 93005; 93225; 93226; 93306; 93880; 96125; 96360; 96361; 97162; 99285; G0378; G8987; G8988; G8996; G8997; G8998; J7030

== ENCOUNTER 2017-04-06 12:02 | Day surgery (SDC) | payer OTHER ==
[~2017-04-06] VITALS: Ht 165.1 cm; Wt 67.5 kg
[~2017-04-06 12:02] MED LIST changes: -AMLO5 PO; +AMLO5TAB2 PO; +ASPI-516 CHEW; -HYDR-2768 PO; +HYDR25TA5 PO; -LISI-366 PO; +LISI40TA PO; -OMEG306C PO; +PROPOFOL 200 MG/20 ML AMP IV ONE; +SIMV40TA PO; +SODIUM CHLORID 0.9% 500 ML INJ 500 ML IV ONE; +ePHEDrine/NS 25 MG/5 ML SYRINGE IV ONE
[2017-04-06] MEDS ORDERED: METOPROLOL TARTRATE 25 MG TAB PO PRN (12:30)
[2017-04-06] MEDS ORDERED: SODIUM CHLORID 0.9% 500 ML IV PRN (12:30)
[2017-04-06] MEDS ORDERED: CHLORHEXIDINE GLUCONATE 2 % 1 PACK (2 CLOTHS) TOPICAL PRN (12:30)
[2017-04-06] MEDS ORDERED: POVIDONE IODINE 5% (ANTISEPSIS KIT) 4 APPLICATIONS EACH NARE PRN (12:30)
[2017-04-06] MEDS ORDERED: LACTATED RINGER'S 1000 ML IV PRN (12:30)
[2017-04-06] MEDS ORDERED: INSULIN HUMAN REGULAR 1,000 UNITS/10 ML VIAL SQ PRN (12:30)
[2017-04-06] MEDS ORDERED: GELA600C2 PO (12:36)
[2017-04-06 12:37] VITALS: BP 181/87; PULSE 74; RESP 18; TEMP 98.2; O2SAT 100
[2017-04-06] MEDS ORDERED: VANCOMYCIN 1000 MG/NS 250 ML IV SCH ×2 (13:00)
[2017-04-06] MEDS ORDERED: NO Heparin, Lovenox, Coumadin at least 12 hours prior to procedure. PRN (13:00)
[2017-04-06] MEDS ORDERED: MUPIROCIN 2% OINT 1 APPLIC/GM SYR NASAL SCH (13:00)
[2017-04-06] MEDS ORDERED: CHLORHEXIDINE GLUCONATE 2 % 1 PACK (2 CLOTHS) TOPICAL SCH (13:00)
[2017-04-06] MEDS ORDERED: ceFAZolin 2 GM PREMIX 50 ML IV SCH (13:00)
[2017-04-06] MEDS ORDERED: Hold AM Insulin & AM Hypoglycemic medications in diabetic patients PRN (13:00)
[2017-04-06] MEDS ORDERED: NS 1000 ML IV SCH (13:00)
[2017-04-06] MEDS ORDERED: POVIDONE IODINE 5% (ANTISEPSIS KIT) 4 APPLICATIONS EACH NARE SCH (13:00)
[2017-04-06] MEDS ORDERED: LORazepam 1 MG TAB SL SCH (13:00)
[2017-04-06 13:07] LABS: BASOPHIL % 0.7 % (0.0-2.0); EOSINOPHIL # 0.1 TH/MM3 (0-0.4); EOSINOPHIL % 1.5 % (0.0-4.0); HEMATOCRIT 35.2 % (35.0-46.0); HEMOGLOBIN 11.7 GM/DL (11.6-15.3); LYMPH % 45.6 % (9.0-44.0); LYMPHOCYTE # 2.9 TH/MM3 (1.0-4.8); MEAN CELL VOLUME 85.6 FL (80.0-100.0); MEAN CORPUSCULAR HEMOGLOBIN 28.4 PG (27.0-34.0); MEAN CORPUSCULAR HGB CONC 33.2 % (32.0-36.0); MEAN PLATELET VOLUME 6.9 FL (7.0-11.0); MONO % 5.3 % (0.0-8.0); MONOCYTE # 0.3 TH/MM3 (0-0.9); NEUT % 46.9 % (16.0-70.0); PLATELET COUNT 336 TH/MM3 (150-450); RED BLOOD COUNT 4.11 MIL/MM3 (4.00-5.30); RED CELL DISTRIBUTION WIDTH 13.3 % (11.6-17.2); WHITE BLOOD COUNT 6.4 TH/MM3 (4.0-11.0)
[2017-04-06 13:16] LABS: PROTHROMBIN TIME - PATIENT 10.3 SEC (9.8-11.6)
[2017-04-06 13:23] LABS: BICARBONATE 27.4 MEQ/L (21.0-32.0); CALCIUM 9.7 MG/DL (8.5-10.1); CREATININE 0.91 MG/DL (0.50-1.00)
[2017-04-06] MEDS ORDERED: LIDOCAINE HCL 2% 50 ML VIAL ONE (15:32)
--- NOTE | 2017-04-06 16:48 | CATHPROC ---
Patient Name: EILEEN VEE Study #: [id number] Initial MD: Bryan Gong Date of : 1930 Study Date: 04/06/2017 Cardiac Catheterization Report 04/06/2017 4:49:00 PM Financial #: [id number] 1 of 9 Patient Name: EILEEN VEE Study #: [id number] Initial MD: Bryan Gong Date of : 1930 Study Date: 04/06/2017 Entire Case Report Patient Information Patient Name EILEEN VEE Date of 1930 Age 86 years Financial # [id number] Gender F AlternateID Lab Number 2 Room Number DC08 Height (in) 65.0 Height (cm) 165.1 BSA 1.74 Weight (lbs) 148.5 Weight (kg) 67.5 Patient Address/Phone Number Home Address [facility] Home Phone Number [phone] [facility] [id number] Study Information Study Number Admission Scheduled Start Study Start [id number] Apr 06 2017 12:02PM 04/06/2017 Apr 06 2017 3:18PM [place] Service Cardiac Pacer/ICD Admit Source Facility Department Other [facility] - Picker Machine Operator Physician and Clinical Staff Initial Bryan Mims Burr Sander Jaylin Duggan,RT(R) TECH2 Other Anesthesia, BEAD FORMING MACHINE SET UP OPERATOR Other Deborah Gomez,NORAH Recorder Adelaide Perez RN Recorder Deborah Gomez,NORAH Scrub Deandre BarnesRT(R) Procedures Performed Procedure Location (Site) Vessel Name Lead Insertion Venogram Subclav. Vein (Rt) Subclavian Vein 04/06/2017 4:49:00 PM Financial #: [id number] 2 of 9 Patient Name: EILEEN VEE Study #: [id number] Initial MD: Bryan Gong Date of : 1930 Study Date: 04/06/2017 Equipment Time Ramp Boss Description Size Mfg Part Number Used/Scraped 16:11 BIOTRONIK LEAD, SOLIA 60 53 PRO MRI * [id number] Used 16:15 BIOTRONIK LEAD, SOLIA S PRO MRI * [id number] Used 16:23 BIOTRONIK PACEMAKER, ELUNA 8 SUSHMA DDDR [id number] Used [id number] 15:21 MEDLINE INDUSTRIES SUTURE, STRIP PLUS 1/2" * Used *[id number] 15:21 MEDLINE PACER ADHESIVE, MASTISOL 2/3CC 2/3CC 0523-48 Used 15:21 MEDLINE PACER CHRISTINA, LIMB * 2530 *[id number] Used [id number] 15:21 MEDLINE PACER PACK, PACER CUSTOM * Used *[id number] 15:21 MEDLINE PACER PEN, SKIN DUAL W/ RULER * Used *[id number] 15:21 7digital PACER SAFE SHEATH, FR7, 13CM FR 7 [id number] Used 15:21 7digital PACER SAFE SHEATH, FR7, 13CM FR 7 [id number] Used 15:37 Needle Sponge Count 2 22 Used 15:37 Needle Sponge Count 25 1 Used 15:37 Needle Sponge Count 4 4 Used 16:02 NYCOMED OMNIPAQUE, 300 MG, 50ML 50ML [id number] Used [id number] *[id number] SUTURE, 3-0 VICRYL [SH] ([id number]) SUTURE, 3-0 VICRYL [SH] ([id number]) SUTURE, 4-0 MONOCRYL [PS2] (Y496G) [id number] 15:21 [employer] BL[employer],WARM AIR CCL * Used *[id number] [facility] PAD, ELECTROSURGICAL 15:21 * [id number] *[id number] Used SURGICAL GROUNDING ORANGE 6611-6709 15:21 ZOLL [employer] CHASIDY. / * Used *67983 Equipment Model, Serial, Lot Number and Expiration Data Description Model Number Serial Number Lot Number Expiration Date LEAD, SOLIA 60 53 PRO MRI [id number] 11-19-2018 LEAD, SOLIA S PRO MRI [id number] [id number] 08-19-2018 PACEMAKER, ELUNA 8 RIAT [id number] 03-22-2018 04/06/2017 4:49:00 PM Financial #: [id number] 3 of 9 Patient Name: EILEEN VEE Study #: [id number] Initial MD: Bryan Gong Date of : 1930 Study Date: 04/06/2017 Insurance Information Insurance Payor Private Health Insurance Third Constitution Party Third Constitution Party Number BANDAR GARCIA O HUMCRO Labs Hgb (g/dl) Hct (%) RBC (MIL/MM3) WBC (l/cumm) Platelets (thousands) 11.60-17.00 35.00-51.00 4.00-5.90 4.00-11.00 150.00-450.00 11.7 35.2 4.1 6.4 336 Glucose (mg/dl) BUN (mg/dl) Creatinine (mg/dl) BUN:Creatinine (1:x) 74.00-106.00 7.00-18.00 0.50-1.30 10.00-20.00 94 10 0.9 11.1 Na (meq/l) K (meq/l) Cl (meq/l) CO2 (mmol/L) Ca (mg/dl) 136.00-145.00 3.50-5.10 98.00-107.00 21.00-32.00 8.50-10.10 143 3.6 107 27.4 9.7 INR (PTT:PT) 0.90-1.10 1 CPK-MB (ng/ML) 0.50-3.60 Not Drawn Medication Medication Total Dose (Bolus/Oral) Medication Total Dosage/Unit 2% XYLOCAINE 50 mL Medications (Bolus/Oral) Medication Time Given Dosage/Unit Administered By Reason 2% XYLOCAINE 04/06/2017 4:02:33 PM 50 mL Bryan Gong 50 mL 2% XYLOCAINE given in lab by Bryan Gong in Right upper chest via Subcutaneous. 04/06/2017 4:49:00 PM Financial #: [id number] 4 of 9 Patient Name: EILEEN VEE Study #: [id number] Initial MD: Bryan Gong Date of : 1930 Study Date: 04/06/2017 Medication (Drip) Medication Time Given Dosage/Unit Concentration/Unit Diluent (ml) Solution ANCEF 04/06/2017 3:15:31 PM 2 g 2 g ANCEF given in lab by Madelaine, BEAD FORMING MACHINE SET UP OPERATOR via Peripheral IV. Ordered by Bryan Gong. Reason: As per physicians verbal order. VANCOMYCIN DRIP 04/06/2017 3:15:00 PM 1 g 1 g VANCOMYCIN DRIP given in lab by Anesthesia, BEAD FORMING MACHINE SET UP OPERATOR via Peripheral IV. Ordered by Bryan Gong. Reas on: As per physicians verbal order. Initial Case Assessment Cardiovascular HR Rhythm NIBP Chest Pain 65 SR 186/84 0 Edema Present Skin color Skin None Normal Warm Dry Circulatory - Right Pulses Radial 3 Scale (0,1,2,3,4,d) Circulatory - Left Pulses Radial 3 Scale (0,1,2,3,4,d) Neurological State Oriented to time-place- Alert Moves all extremities person Respiration - General Respiration Rate SpO2 (%) (B/min) 18 100 04/06/2017 4:49:00 PM Financial #: [id number] 5 of 9 Patient Name: EILEEN VEE Study #: [id number] Initial MD: Bryan Gong Date of : 1930 Study Date: 04/06/2017 Final Case Assessment Cardiovascular HR Rhythm NIBP Chest Pain 81 sr 142/78 0 Edema Present Skin color Skin None Normal Warm Dry Circulatory - Right Pulses Radial 3 Scale (0,1,2,3,4,d) Circulatory - Left Pulses Radial 3 Scale (0,1,2,3,4,d) Circulatory - Lower Extremities Color Lower Right Color Lower Left Normal Normal Neurological State Alert Moves all extremities Respiration - General Respiration Rate SpO2 (%) (B/min) 18 100 Chronological Log Time Study Chronological Log 15:05:00 Patient arrived via Bed. 15:05:10 Patient Name, D.O.B, / Armband Verified By R.N.0 15:05:55 Anesthesia at bedside. Assumes care of patient. SEE RECORDS FOR ALL MEDS AND VITALS DURING PROCEDURE 1 g VANCOMYCIN DRIP given in lab by Madelaine, BEAD FORMING MACHINE SET UP OPERATOR via Peripheral IV. Ordered by Bryan Gong . Reason: As per 15:15:00 physicians verbal order. 2 g ANCEF given in lab by Madelaine BEAD FORMING MACHINE SET UP OPERATOR via Peripheral IV. Ordered by Bryan Gong. Reason: As per physicians 15:15:31 verbal order. 15:21:53 Patient has been NPO for More than 6Hrs. 15:21:54 Skin Breakdown- NONE PER PATIENT 15:22:28 Patient Warmer Placed on the Table. 15:22:28 Disposable Defibrillator Pads Placed On Patient. 04/06/2017 4:49:00 PM Financial #: [id number] 6 of 9 Patient Name: EILENE VEE Study #: [id number] Initial MD: Bryan Gong Date of : 1930 Study Date: 04/06/2017 15:22:29 Que Prominences Protected 15:22:32 IV Warmer Connected To Patient. 15:22:32 A # 20 IV was noted in the Antecubital (right). Grade = 0 15:22:44 A # 20 IV was noted in the Antecubital (left). Grade = 0 15:22:52 A # 20 IV was noted in the Hand (left). Grade = 0 15:22:55 Bovie ground pad applied to: LEFT THIGH Assessment: Initial Case, HR=65 BPM, Rhythm=SR, XMCN=806/84 mmhg, Chest Pain=0, Edema=None, Col or=Normal, Skin = Warm, Dry Right Pulses: Radial=3 15:23:06 Left Pulses: Radial=3 Neurological: State=Alert, Ox3, HARPER Respiration: Resp=18 B/min, ZoG1=209 % 15:23:06 History and physical on the chart or being dictated. 15:23:43 Table restraints applied according to hospital policy 15:23:47 Right Upper Chest Prepped Times Two. 15:24:03 2% CHLORHEXIDINE GLUCONATE WASH AND NASAL SWIPE DONE PRIOR TO PROCEDURE. First Sponge And Instrument Count Done by Deandre Barnes, RT(R). 15:24:06 Hypo's: 4, Sponges: 25, Bovie/scratch: 2 Sutures: 6, Blades: 2, Instruments: 26, Syveck Patches: 0 VERIFIED BY JAYLIN Potts 15:53:53 paged 15:55:17 MD responded Time Out. Correct patient, procedure, procedure equipment, site and side verified with physicia n present. Time 16:01:00 concurred by MD, individual staff and BEAD FORMING MACHINE SET UP OPERATOR. Time Out #2 - Consents verified, patient in correct position, all results are labled and displa yed, safety precautions 16:01:19 taken, antibiotics administered. Time out concurred by MD, individual staff and BEAD FORMING MACHINE SET UP OPERATOR in procedu re 16:01:25 Case Start 16:02:11 The Subclav. Vein (Rt) was manually injected with 20 cc's of contrast. OMNIPAQUE, 300 MG, 5 0ML 50ML used. 16:02:33 50 mL 2% XYLOCAINE given in lab by Bryan Gong in Right upper chest via Subcutaneous. 16:04:05 Surgical Incision Made. 16:05:39 Vascular access was obtained in the Subclav. Vein (Rt). 16:07:28 Vascular access was obtained in the Subclav. Vein (Rt). 16:08:27 A SAFE SHEATH, FR7, 13CM FR 7 was advanced into the Subclav. Vein (Rt) using the Modified S eldinger technique. 16:09:31 A LEAD, SOLIA 60 53 PRO MRI * was inserted and positioned in the RV. 16:10:49 Lead placement verified under fluoroscopy 16:12:45 The RV lead impedance and threshold being tested. 16:13:00 The RV lead was sutured to the fascia. 16:14:55 A SAFE SHEATH, FR7, 13CM FR 7 was advanced into the Subclav. Vein (Rt) using the Modified S eldinger technique. 16:15:13 A LEAD, SOLIA S PRO MRI * was inserted and positioned in the RA. 16:16:00 Lead placement verified under fluoroscopy 16:17:23 The Atrial lead impedance and threshold is being tested. 04/06/2017 4:49:00 PM Financial #: [id number] 7 of 9 Patient Name: EILEEN VEE Study #: [id number] Initial MD: Bryan Gong Date of : 1930 Study Date: 04/06/2017 16:21:50 The Atrial lead was sutured to the fascia. 16:23:15 A PACEMAKER, ELUNA 8 DR-T DDDR was connected and placed in the pocket. Second Sponge And Instrument Count Done by Deandre Barnes, RT(R). 16:31:11 Hypo's: 4, Sponges: 25, Bovie/scratch: 2 Sutures: 6, Blades: 2, Instruments:, Syveck Patches: VERIFIED BY JAYLIN Potts 16:39:49 The pocket was closed. 16:41:59 Implant Procedure was performed. 16:42:06 A PPM Implant . (Dual) 16:42:22 Implantable Device card placed in patient's chart. Final Sponge And Instrument Count Done by Deandre Barnes, RT(R). 16:44:48 Hypo's: 4, Sponges: 25, Bovie/scratch: 2 Sutures: 6, Blades: 2, Instruments: 26, Syveck Patches: 0 VERIFIED BY JAYLIN H 16:45:30 Steri-strips and a sterile dressing applied to site. 16:46:20 Defibrillator and ground pads removed. Skin intact. 16:47:08 DOCU called. Spoke to [facility] 16:47:18 Bedside Report will be given. Assessment: Final Case, HR=81 BPM, Rhythm=sr, NNFA=547/78 mmhg, Chest Pain=0, Edema=None, [place] r=Normal, Skin = Warm, Dry Right Pulses: Radial=3 Left Pulses: Radial=3 16:47:28 Lower Right Extremities: Color=Normal Lower Left Extremities: Color=Normal Neurological: State=Alert, HARPER Respiration: Resp=18 B/min, QoX2=746 % 16:47:35 Case End 16:52:00 Patient moved to stretcher 16:55:00 A sling was placed on the affected arm. End Study - Contrast Media Used In Study Contrast Total Opened (mL) Total Used (mL) Total Wasted (mL) Omnipaque 50 20 30 End Study - Maximum Contrast Load Max Contrast Load (mL) 375.0 End Study - Radiation Exposure Fluoro Time (minutes) 4.0 04/06/2017 4:49:00 PM Financial #: [id number] 8 of Patient Name: EILEEN VEE Study #: [id number] Initial MD: Bryan Gong Date of : 1930 Study Date: 04/06/2017 End Study - Patient Disposition Complications Transferred To Interventional Outcome No Telemetry Bed successful 04/06/2017 4:49:00 PM Financial #: [id number]
[2017-04-06] MEDS ORDERED: traMADol HCL 50 MG TAB PO PRN (17:00)
[2017-04-06 18:26] VITALS: BP 128/59; PULSE 63; RESP 18; TEMP 98; O2SAT 99
--- NOTE | 2017-04-06 18:31 | RADRPT ---
EXAM DATE/TIME: 04/06/2017 17:58 [place] COMPARISON: CHEST SINGLE AP, October 16, 2016, 11:50. INDICATIONS : Rule out right sided pneumothorax, and congestive heart failure. MEDICAL HISTORY : Hypertension. Hypercholesterolemia. SURGICAL HISTORY : Pacemaker. Hysterectomy. ENCOUNTER: Initial ACUITY: 1 day PAIN SCORE: 0/10 LOCATION: Bilateral chest FINDINGS: There is placement of the pacer leads from the right side overlying right atrium and right ventricle. No pneumothorax or significant effusion. Cardiomegaly. Tortuous aorta. CONCLUSION: 1. No acute findings. Pacer leads overlying right atrium and right ventricle. Derrek Echevarria MD on April 06, 2017 at 18:28 Board Certified Radiologist. This report was verified electronically.
[2017-04-06 20:00] VITALS: BP 139/58; PULSE 60; PULSE 64; RESP 16; TEMP 97.6; O2SAT 99
[2017-04-06] MEDS ORDERED: PRAVASTATIN SOD 80 MG TAB PO SCH (21:00)
[2017-04-07] VITALS (7 sets, daily range): BP systolic 125–132; BP diastolic 65–66; PULSE 60–67; RESP 16–18; TEMP 97.8–98.9; O2SAT 97–99
[2017-04-07] MEDS ORDERED: VANCOMYCIN INJ 1,000 MG in SODIUM CHLOR 0.9% 250 ML INJ 250 ML IV ONE (06:00)
--- NOTE | 2017-04-07 07:39 | PD.CARD.PN ---
Subjective Subjective Remarks Denies pain, dyspnea, dizziness. Objective Medications Item Value Date Time Amlodipine 5 mg 04/07/17 0900 Besylate DAILY/PO (Norvasc) Aspirin 81 mg 04/07/17 0900 (Aspirin Chew) DAILY/CHEW Hydrochlorothiazide 25 mg 04/07/17 0900 (Hydrodiuril) DAILY/PO Lisinopril 40 mg 04/07/17 0900 (Prinivil) DAILY/PO Pravastatin Sodium 80 mg 04/06/17 2100 (Pravachol) HS/PO 04/06/172105 Current Medications Medications (Trade) Dose Ordered Sig/Maria Guadalupe Route Start Time Stop Time Status Last Admin Lactated Ringer's 1,000 ml @ 30 mls/hr Q24H PRN IV 04/06/17 12:30 04/09/17 12:29 Sodium Chloride 500 ml @ 30 mls/hr [id number] PRN IV 04/06/17 12:30 04/09/17 12:29 (Lopressor) 25 mg HEAD SWAMPER PRN PO 04/06/17 12:30 04/09/17 12:29 (Betadine 5% Antisepsis Kit) 1 applic HEAD SWAMPER PRN EACH NARE 04/06/17 12:30 04/09/17 12:29 (Chlorhexidine 2% Cloth) 3 pack HEAD SWAMPER PRN TOPICAL 04/06/17 12:30 04/09/17 12:29 (NovoLIN R INJ) See Protocol Table ... HEAD SWAMPER PRN SQ 04/06/17 12:30 04/09/17 12:29 Miscellaneous Information Hold AM Insulin & ... UNSCH PRN .XX 04/06/17 13:00 04/10/17 12:59 Miscellaneous Information NO Heparin, Loven... UNSCH PRN .XX 04/06/17 13:00 04/10/17 12:59 Sodium Chloride 1,000 ml @ 30 mls/hr Q24H IV 04/06/17 13:00 04/06/17 13:00 Cefazolin Sodium/ Dextrose 50 ml @ 100 mls/hr HEAD SWAMPER IV 04/06/17 13:00 04/09/17 12:59 04/06/17 15:15 Vancomycin HCl 1000 mg/Sodium Chloride 250 ml @ 250 mls/hr HEAD SWAMPER IV 04/06/17 13:00 04/09/17 12:59 04/06/17 15:15 (Ativan) 1 mg HEAD SWAMPER SL 04/06/17 13:00 04/09/17 12:59 (Betadine 5% Antisepsis Kit) 2 applic HEAD SWAMPER EACH NARE 04/06/17 13:00 04/09/17 12:59 (Bactroban Nasal 2% Oint) 1 applic HEAD SWAMPER NASAL 04/06/17 13:00 04/09/17 12:59 (Chlorhexidine 2% Cloth) 3 pack HEAD SWAMPER TOPICAL 04/06/17 13:00 04/09/17 12:59 (Ultram) 50 mg Q6HR PRN PO 04/06/17 17:00 04/06/17 21:06 (Norvasc) 5 mg DAILY PO 04/07/17 09:00 (Aspirin Chew) 81 mg DAILY CHEW 04/07/17 09:00 (Hydrodiuril) 25 mg DAILY PO 04/07/17 09:00 (Prinivil) 40 mg DAILY PO 04/07/17 09:00 (Pravachol) 80 mg HS PO 04/06/17 21:00 04/06/17 21:06 Vital Signs / I&O Vital Signs Date Time Temp Pulse Resp B/P (MAP) Pulse Ox O2 Delivery O2 Flow Rate FiO2 04/07/17 07:13 98.1 61 17 132/66 (88) 99 04/07/17 04:00 67 04/07/17 04:00 98.9 60 18 131/65 (87) 99 04/07/17 00:00 97.8 60 16 125/65 (85) 97 04/07/17 00:00 61 04/06/17 21:43 21 04/06/17 20:00 97.6 60 16 139/58 (85) 99 04/06/17 20:00 64 04/06/17 18:26 98.0 63 18 128/59 (82) 99 04/06/17 12:37 98.2 74 18 181/87 (118) 100 I/O 04/06/17 04/06/17 04/06/17 04/07/17 04/07/17 04/07/17 07:00 15:00 23:00 07:00 15:00 23:00 Intake Total 360 ml Output Total 1200 ml Balance -840 ml Intake Oral 360 ml Output Urine Total 1200 ml # Bowel Movements 0 Physical Exam Right chest pacer site clean dry, intact, no hematoma or tenderness. Laboratory Laboratory Tests Test 04/06/17 12:30 White Blood Count 6.4 TH/MM3 Red Blood Count 4.11 MIL/MM3 Hemoglobin 11.7 GM/DL Hematocrit 35.2 % Mean Corpuscular Volume 85.6 FL Mean Corpuscular Hemoglobin 28.4 PG Mean Corpuscular Hemoglobin Concent 33.2 % Red Cell Distribution Width 13.3 % Platelet Count 336 TH/MM3 Mean Platelet Volume 6.9 FL Neutrophils (%) (Auto) 46.9 % Lymphocytes (%) (Auto) 45.6 % Monocytes (%) (Auto) 5.3 % Eosinophils (%) (Auto) 1.5 % Basophils (%) (Auto) 0.7 % Neutrophils # (Auto) 3.0 TH/MM3 Lymphocytes # (Auto) 2.9 TH/MM3 Monocytes # (Auto) 0.3 TH/MM3 Eosinophils # (Auto) 0.1 TH/MM3 Basophils # (Auto) 0.0 TH/MM3 CBC Comment DIFF FINAL Differential Comment Prothrombin Time 10.3 SEC Prothromb Time International Ratio 1.0 RATIO Activated Partial Thromboplast Time 26.4 SEC Blood Urea Nitrogen 10 MG/DL Creatinine 0.91 MG/DL Random Glucose 94 MG/DL Calcium Level 9.7 MG/DL Sodium Level 143 MEQ/L Potassium Level 3.6 MEQ/L Chloride Level 107 MEQ/L Carbon Dioxide Level 27.4 MEQ/L Anion Gap 9 MEQ/L Estimat Glomerular Filtration Rate 71 ML/MIN Imaging Last 24 hours Impressions Chest X-Ray 04/06/17 4768 Signed Impressions: Service Date/Time: March 17:58 - CONCLUSION: 1. No acute findings. Pacer leads overlying right atrium and right ventricle. Derrek Echevarria MD Assessment and Plan Problem List: (1) Status post placement of cardiac pacemaker ICD Codes: Z95.0 - Presence of cardiac pacemaker Status: Acute Plan: Stable overnight. Pacer site OK. Post op chest x-ray OK. Awaiting pacer re-interrogation by rep. Discharge if normal, stable pacing parameters, same home medications plus Levaquin 500 mg qd for 5 days, f/u early next week for incision and pacer recheck. Code Status full code Discussed Condition With patient Bryan Gong MD Apr 07, 2017 07:39
[2017-04-07] MEDS ORDERED: LISINOPRIL 20 MG TAB PO SCH (09:00)
[2017-04-07] MEDS ORDERED: HYDROCHLOROTHIAZIDE 25 MG TAB PO SCH (09:00)
[2017-04-07] MEDS ORDERED: amLODIPine BESYLATE 5 MG TAB PO SCH (09:00)
[2017-04-07] MEDS ORDERED: ASPIRIN 81 MG CHEW TAB CHEW SCH (09:00)
--- NOTE | 2017-04-07 12:13 | MP ---
cc: PAULINO SALAZAR MD, GLENN H. M.D. DATE OF SURGERY: 04/07/2017. PROCEDURE: Dual-chamber permanent pacemaker implantation via the right subclavian vein. INDICATIONS: Symptomatic bradycardia. OPERATIVE NOTES: The patient was brought to the operating suite in a fasting state after having signed informed consent. The right upper chest was prepped and draped as per policy and anesthetized with 1% lidocaine. A transverse incision was made inferior to the right clavicle and using blunt dissection, a subcutaneous pocket was formed down to the pectoralis fascia. Using modified Seldinger technique, central venous access was obtained twice via the right subclavian vein without difficulty. Over the more lateral guidewire, a 7-Montenegrin sheath was placed and through this sheath a ventricular active fixation lead was introduced and its tip positioned in the right ventricular apex where good current of injury, stimulation threshold (0.6 volts) and sensitivity (7.9 mV) was demonstrated. This lead was secured into place using 2-0 silk ties down to the pectoralis fascia. Over the remaining guidewire, another 7-Montenegrin sheath was placed and through this sheath an atrial active fixation lead was introduced and its tip positioned in the right atrial appendage where good current of injury, stimulation threshold (0.9 volts) and sensitivity (3.8 mV) was demonstrated. This lead was secured into place using 2-0 silk ties down to the pectoralis fascia. The leads were then connected to the pacemaker generator which is a Biotronik Eluna device. The leads and the generator were placed into the subcutaneous pocket, which was closed using 3-0 Vicryl interrupted stitches in two layers to close the subcutaneous tissue and then 4-0 Monocryl running stitch to close the subcuticular tissue. Overlapping Steri-Strips and a pressure dressing were applied. There were no apparent immediate complications. A portable chest x-ray is pending at the time of this dictation. CONCLUSION: Successful dual-chamber permanent pacemaker implantation via the right subclavian vein using a Biotronik, Eluna pacemaker generator. MD CASTILLO Avelar/HERBERTH /4:44 PM /12:02 PM MTDKaylee
--- NOTE | 2017-04-08 01:44 | EKG ---
Date Performed: 04/06/2017 Time Performed: 12:44:42 PTAGE: 86 years EKG: Mild sinus bradycardia PACs Left axis deviation Septal and lateral ST-T changes are nonspec ific Abnormal ECG PREVIOUS TRACING : 10/16/2016 11.36 Compared to prior tracing, rate faster DOCTOR: Shoshana Butt Interpretating Date/Time 04/08/2017 01:43:40
== END 2017-04-07 12:01 | disposition home or self-care (01) ==
LOC: HDOC 12:02 → HDIC 12:03 → HCIS 18:33 → HDOC 04-07 12:01
PROVIDERS: ATTEND Internal Medicine Cardiovascular Disease
DX: I49.5 Sick sinus syndrome (principal); I10 Essential (primary) hypertension; R06.02 Shortness of breath; R53.83 Other fatigue; R42 Dizziness and giddiness
CPT/HCPCS: 00530; 33208; 71045; 80048; 85025; 85610; 85730; 93005; C1785; C1898; J0690; J3010; J3370; J7030; J7040; J7050